=== PATIENT | male | born 1985 | race Hispanic/Latino ===

== ENCOUNTER 2016-12-24 11:35 | Emergency (ER) | payer OTHER ==
[2016-12-24 11:39] VITALS: BP 145/103; PULSE 88; RESP 20; TEMP 97.6; O2SAT 98
[2016-12-24 11:40] VITALS: BMI 53.1
--- NOTE | 2016-12-24 12:02 | ED PDOC ---
HPI: Wound Care - HPI Time Seen by Provider: 12/24/16 11:57 Chief Complaint (Provider): finger laceration History Per: Patient Exam Limitations: no limitations Onset/Duration Of Symptoms: Mins (30x minutes prior to arrival) Current Symptoms Are (Timing): Still Present Location Of Injury: Right: Hand (right 3rd digit) Quality Of Symptoms: Painful Severity: Moderate Additional Complaint(s): 31 year old male (right hand dominant) presents to the ED with complaints of a right third digit laceration that occurred 30 minutes prior to arrival. He reports that he was moving an object, and there was a piece of metal sticking out of the object that pierced through his skin. He is able to move the finger with no limitations and denies numbness and tingling to the area. Patient does not recall when he got his last tetanus shot. PMD: non [facility] provider Past Medical History Reviewed: Historical Data, Nursing Documentation, Vital Signs Vital Signs: Last Vital Signs Temp 97.6 F 12/24/16 11:37 Pulse 88 12/24/16 11:37 Resp 20 12/24/16 11:37 BP 145/103 H 12/24/16 11:37 Pulse Ox 98 12/24/16 11:37 - Medical History PMH: Asthma - Surgical History Surgical History: No Surg Hx - Family History Family History: States: No Known Family Hx - Living Arrangements Living Arrangements: With Family - Social History Current smoker - smoking cessation education provided: No Alcohol: None Drugs: Denies - Immunization History Hx Tetanus Toxoid Vaccination: No (not sure of last tetanus) - Home Medications Home Medications: Ambulatory Orders Medication Instructions Recorded Cephalexin [Keflex] 500 mg PO TID #21 capsule 12/24/16 Fluticasone/Salmeterol 100/50 1 puff INH DAILY 12/24/16 [Advair Diskus 100/50] - Allergies Allergies/Adverse Reactions: Allergies Allergy/AdvReac Type Severity Reaction Status Date / Time No Known Allergies Allergy Verified 12/24/16 12:10 Review of Systems ROS Statement: Except As Marked, All Systems Reviewed And Found Negative Musculoskeletal: Positive for: Hand Pain (right 3rd digit laceration) Neurological: Negative for: Numbness (no tingling) Physical Exam - Reviewed Nursing Documentation Reviewed: Yes Vital Signs Reviewed: Yes - Physical Exam Appears: Positive for: Well, Non-toxic, No Acute Distress Head Exam: Positive for: ATRAUMATIC, NORMOCEPHALIC Skin: Positive for: Normal Color. Negative for: Rash Cardiovascular/Chest: Positive for: Regular Rate, Rhythm Respiratory: Positive for: Normal Breath Sounds Extremity: Positive for: Normal ROM, Other (2 cm flap laceration on the palmar aspect on the right 3rd digit with full range of motion, no foreign body, normal distal sensation, normal cap refill) Neurologic/Psych: Positive for: Alert, Oriented (3x) - ECG O2 Sat by Pulse Oximetry: 98 (RA) Pulse Ox Interpretation: Normal - Other Rad Right hand x-ray X-Ray: Interpreted by Me, Viewed By Me X-Ray Interpretation: no fx, no dis Procedure: Wound Repair - Time Performed Time Performed: 13:18 - Time Out Time Out: Side verified, Site verified, Patient ID confirmed, Sterile procedures obs. - Consent Obtained Consent obtained: Verbal - Performed by Performed by: Mid-level Provider - Indications Indication(s):: Laceration - Location Location:: Right Finger:: Middle Shape:: Other (flap) Dimensions Length cm: 2 Depth:: Epidermis - Anesthetic Technique Anesthetic Technique: Local Local/Regional Anesthetic:: Lidocaine 1% - Debris Debris:: None - Irrigated Irrigated with ml of normal saline: 40 - Complexity Complexity:: Simple (one layer) - Wound repair method Sutures:: # (7), Size (4-0), Type (nylon), Technique (interrupted) - Muscle repiar layer closed with Muscle repair layer closed with:: Abx ointment applied, Dressing applied, Tetanus ordered - Complications Complications: none - Patient tolerated procedure Patient Tolerated Procedure:: Well Medical Decision Making Medical Decision Makin:57 Initial impression: 31 year old male with a finger laceration. Initial plan: * XRay hand right 3 views * TDAP vaccine (Boostrix injection) * reevaluation See procedure note. Patient was given wound care instructions, rx keflex. Advised NSAID's prn pain, wound check 2 days and suture removal 14 days. Scribe Attestation: Documented by Izabela Andrew, acting as a scribe for Nanda Soria PA-C. Provider Scribe Attestation: All medical record entries made by the Scribe were at my direction and personally dictated by me. I have reviewed the chart and agree that the record accurately reflects my personal performance of the history, physical exam, medical decision making, and the department course for this patient. I have also personally directed, reviewed, and agree with the discharge instructions and disposition. Disposition - Clinical Impression Clinical Impression: Finger laceration, Need for tetanus booster - Patient ED Disposition Is Patient to be Admitted: No Counseled Patient/Family Regarding: Studies Performed, Diagnosis, Need For Followup, Rx Given - Disposition Referrals: [facility] [Outside] Disposition: Routine/Home Disposition Time: 13:19 Condition: STABLE Additional Instructions: Keep wound clean and dry. Take rx meds as directed. Over the counter advil for pain. Wound check 2-3 days. Suture removal 14 days. Prescriptions: Cephalexin [Keflex] 500 mg PO TID #21 capsule Instructions: Finger Laceration (ED), Diphtheria/Acellular Pertussis/Tetanus Booster Vaccine (Tdap) (Injection)
[2016-12-24] MEDS ORDERED: Lidocaine 1% Inj (20ml) ONE (12:04)
[2016-12-24] MEDS ORDERED: Povidone Iodine Topical 10% Sol ONE (12:04)
[2016-12-24] MEDS ORDERED: Lidocaine 1% Inj (20ml) IJ STA (12:10)
[2016-12-24] MEDS ORDERED: TDAP Vaccine 0.5 mL Syr IM ONE (12:10)
--- NOTE | 2016-12-24 12:49 | RAD ---
PROCEDURE: Right Hand Radiographs. HISTORY: trauma COMPARISON: None. FINDINGS: BONES: Normal. No fracture. JOINTS: Normal. No osteoarthritic changes. SOFT TISSUES: Normal. OTHER FINDINGS: None. IMPRESSION: Normal right hand radiographs.
== END 2016-12-24 13:30 | disposition home or self-care (01) ==
LOC: H.ER 11:35
DX: S61.212A Laceration without foreign body of right middle finger without damage to nail, initial encounter (principal); W22.8XXA Striking against or struck by other objects, initial encounter; Z23 Encounter for immunization